=== PATIENT | female | born 1985 | race Caucasian/White ===

== ENCOUNTER 2019-05-31 09:56 | Day surgery (SDC) | payer MEDICAID ==
[2019-05-31] VITALS (9 sets, daily range): BP systolic 100–113; BP diastolic 56–73
[~2019-05-31] VITALS: Ht 165.1 cm; Wt 111.1 kg
--- NOTE | 2019-05-31 10:19 | Pre-Procedure Note/Attestation ---
Pre-Procedure Note/Attestation Complete Prior to Procedure Planned Procedure: not applicable Procedure Narrative: esophagogastroduodenoscopy and colonoscopoy Indications for Procedure Pre-Operative Diagnosis: abd pain, GERD, rectal bleeding Attestation I attest that I discussed the nature of the procedure; its benefits; risks and complications; and alternatives (and the risks and benefits of such alternatives ), prior to the procedure, with the patient (or the patient's legal sales representative raw fibers). I attest that, if there was a reasonable possibility of needing a blood transfusion, the patient (or the patient's legal sales representative raw fibers) was given the [facility] standardized written summary, pursuant to the [place] Blood Safety Act ([place] Health and Safety Code # 1645, as amended). I attest that I re-evaluated the patient just prior to the surgery and that there has been no change in the patient's H&P, except as documented below: Claus Cornejo MD May 31, 2019 10:19
--- NOTE | 2019-05-31 10:20 | Short Stay Surgery H&P ---
History of Present Illness History of Present Illness Chief Complaint abd pain, rectal bleed HPI Inez Esqueda is a 33 year old female who was admitted on for Hemorrhoid And Gerd Patient History PAST MEDICAL HISTORY: (1) Obesity Review of Systems Cardiovascular: Reports: no symptoms Respiratory: Reports: no symptoms Skeletal: Reports: no symptoms Gastrointestinal: Reports: no symptoms Genitourinary: Reports: no symptoms Neurologic: Reports: no symptoms Endocrine: Reports: no symptoms Physical Exam Skin: normal HENT: normal Heart: normal Lungs: normal Abdomen: normal Extremities: normal Plan Plan of Care EGD and colonoscopy Attestation Are the patient's medical conditions optimized for surgery? Attestation Response: yes Claus Cornejo MD May 31, 2019 10:20
--- NOTE | 2019-05-31 10:46 | Anethesia Preoperative Eval ---
Anesthesia Pre-op PMH/ROS General Date of Evaluation: May 31, 2019 Time of Evaluation: 10:34 Anesthesiologist: cathi ASA Score: ASA 2 Mallampati Score Class I : Soft palate, uvula, fauces, pillars visible Class II: Soft palate, uvula, fauces visible Class III: Soft palate, base of uvula visible Class IV: Only hard plate visible Mallampati Classification: Class II Surgeon: janene Diagnosis: gerd, hemorrhoids Surgical Procedure: egd/colonoscopy Anesthesia History: none Family History: no anesthesia problems Allergies: Coded Allergies: No Known Allergies (Unverified , 05/31/19) Medications: see eMAR Patient NPO?: Yes Past Medical History Gastrointestinal/Genitourinary: Reports: other - hemorrhoids Other: obesity Anesthesia Pre-op Phys. Exam Physician Exam Last Vital Signs Date Time Temp Pulse Resp B/P (MAP) Pulse Ox O2 Delivery O2 Flow Rate FiO2 05/31/19 10:48 97.9 81 18 110/73 98 Room Air Constitutional: NAD Neurologic: CN 2-12 intact Cardiovascular: RRR Respiratory: CTA Gastrointestinal: S/NT/ND Airway Exam Mallampati Score: Class II MO: limited Neck: short TMD: 2fb ROM: full - 2fb Anesthesia Pre-op A/P Labs Urine Test Labs Test 05/31/19 10:05 Urine HCG, Qualitative Negative (NEGATIVE) Risk Assessment & Plan Assessment: asa2 Plan: mac Status Change Before Surgery: No Pre-Antibiotics Drug: Cheryl Lynn MD May 31, 2019 10:46
[2019-05-31] MEDS ORDERED: Propofol 200mg/20ml IV ONE (11:00)
[2019-05-31] MEDS ORDERED: LR 1000ml ONE (11:00)
[2019-05-31] MEDS ORDERED: Lidocaine 1% MPF 10mg/ml 5ml ONE (11:00)
--- NOTE | 2019-05-31 11:49 | Endoscopy Procedure Note ---
Endoscopy Procedure Note General Indication for Procedure: abd pain, rectal bleeding Procedures Performed: EGD, colonoscopy Operative Findings/Diagnosis: 4 polyps Specimen: yes Pt Tolerated Procedure Well: Yes Estimated Blood Loss: none Anesthesia Anesthesiologist: flaquita Anesthesia: MAC Inserted Devices Implant(s) used?: No Quality Quality of Bowel Preparation: Excellent Did scope reach the cecum?: Yes Was there any complications?: No GI Core Measures 50 yrs or older w/o bx or poly: No 10yrs. F/U recommended: Yes If not recommended, why?: Above average risk 18 years or older w/prev. colo: No Claus Cornejo MD May 31, 2019 11:49
--- NOTE | 2019-05-31 13:57 | Immediate Post-Op Evaluation ---
Immediate Post-Op Evalulation Immediate Post-Op Evalulation Procedure: egd/colonoscopy w/bx Date of Evaluation: May 31, 2019 Time of Evaluation: 12:08 IV Fluids: 550ml lr Blood Products: none Estimated Blood Loss: negligible Blood Pressure Systolic: 133 Blood Pressure Diastolic: 67 Pulse Rate: 73 Respiratory Rate: 18 O2 Sat by Pulse Oximetry: 100 Temperature (Fahrenheit): 98.3 Pain Score (1-10): 0 Nausea: No Vomiting: No Complications 0 Patient Status: awake, reacts Hydration Status: other Drug: Cheryl Lynn MD May 31, 2019 13:57
--- NOTE | 2019-05-31 13:59 | 48 Hour Post Anesthesia Eval ---
Post Anesthesia Evaluation Procedure: egd/colonoscopy w/bx Date of Evaluation: May 31, 2019 Time of Evaluation: 12:10 Blood Pressure Systolic: 106 0: 63 Pulse Rate: 67 Respiratory Rate: 18 Temperature (Fahrenheit): 98.3 O2 Sat by Pulse Oximetry: 100 Airway: patent Nausea: No Vomiting: No Pain Intensity: 0 Hydration Status: adequate Cardiopulmonary Status: stable Mental Status/LOC: patient returned to baseline Post-Anesthesia Complications: none Follow-up care needed: N/A Cheryl Reed MD May 31, 2019 13:59
--- NOTE | 2019-05-31 16:30 | Procedure Note ---
DATE OF PROCEDURE: 05/31/2019 SURGEON: Claus Cornejo M.D. PROCEDURE: Upper endoscopy with biopsy and colonoscopy with snare polypectomy. ANESTHESIA: Per Dr. South. INSTRUMENT: Olympus adult flexible upper endoscope and colonoscope. INDICATION: Abdominal pain, rectal bleeding, evaluation for gastric bypass surgery. REASON FOR PROCEDURE: The procedure, risks, benefits, and possible consequences, including hemorrhage, aspiration, perforation and infection, and alternative treatments, were explained to the patient/legal guardian by Dr. Claus Cornejo and the patient/legal guardian understood and accepted these risks. DESCRIPTION OF PROCEDURE: After informed consent was obtained and the patient was adequately sedated, Olympus upper endoscope was advanced from mouth into the second portion of duodenum and retroflexion was performed in the stomach. GE junction was found to be about 36 cm from the incisors. No evidence of any esophagitis. No hiatal hernia. In the stomach, there was diffuse gastritis. Random biopsies from antrum was obtained to rule out H. pylori infection. At this time, the upper endoscope was retrieved and the patient was turned over for colonoscopy. First, rectal exam was performed, which was positive for external hemorrhoids. Then, the scope was advanced from the rectum into cecum and then subsequently to terminal ileum. Quality of prep was very good. The patient had total of four polyps. First one 1 cm in the ascending colon, removed with hot snare polypectomy technique. There was another polyp in transverse colon, which was removed with cold biopsy forceps technique was very small. Third polyp was in the sigmoid colon, measured roughly about 5 mm, removed with the snare polypectomy technique. Last polyp was in the rectum, was diminutive, was removed with cold biopsy forceps technique. Retroflexion of rectum showed no evidence of any obvious large internal hemorrhoids. The patient tolerated the procedure very well without any complications. SUMMARY OF FINDINGS: 1. Gastritis, status post biopsy. 2. Four colonic polyps removed. See above for details. 3. External hemorrhoids. RECOMMENDATIONS: Follow up pathology and treat accordingly. We will recommend repeat colonoscopy in 3 years given 4 polyps. I want to thank Dr. Rachna Mercado for this kind referral. Claus Eladio Cornejo DR: LILIAN JOB#: [id number] CC: Rachna Mercado M.D.; Fax#: [phone]
== END 2019-05-31 12:50 | disposition home or self-care (01) ==
LOC: GAS 09:56 → EDSEX 11:00 → GAS 12:50
DX: R10.9 Unspecified abdominal pain (principal); K63.5 Polyp of colon; K64.4 Residual hemorrhoidal skin tags; Z98.84 Bariatric surgery status; K62.5 Hemorrhage of anus and rectum; K21.9 Gastro-esophageal reflux disease without esophagitis; K29.50 Unspecified chronic gastritis without bleeding; B96.81 Helicobacter pylori [H. pylori] as the cause of diseases classified elsewhere
CPT/HCPCS: 43239; 45380; 45385; 81025; J0360; J2704; J7120; Z7512; 94003; 94150